=== PATIENT | male | born 1950 | race Caucasian/White ===

== ENCOUNTER 2021-01-12 00:34 | Inpatient (IN) | payer MEDICARE, BC ==
[~2021-01-12] VITALS: Ht 182.9 cm; Wt 95.3 kg
[2021-01-12] VITALS (25 sets, daily range): BP systolic 120–169; BP diastolic 64–119
--- NOTE | 2021-01-12 00:35 | NUR ---
PT AAOX4. [id number] FROM [facility], WITNESSED SYNCOPAL EPISODES, DENIES ANY COMPLAINTS. VSS. AWAKE AND AWARE HE IS IN THE ED.
[2021-01-12] MEDS ORDERED: IV NS 0.9% 500 ML BAG IV ONE (01:00)
[2021-01-12 01:12] LABS: BASOPHILS # (AUTO) 0.1 K/uL (0.0-0.2); BASOPHILS % (AUTO) 0.8 % (0.0-2.0); EOSINOPHILS % (AUTO) 0.3 % (0.0-6.0); HEMATOCRIT 45 % (39-51); HEMOGLOBIN 14.9 g/dL (13.5-17.5); LYMPHOCYTES # (AUTO) 1.1 K/uL (0.8-4.8); MEAN CORPUSCULAR HGB CONC 33 g/dl (31.0-36.0); MEAN CORPUSCULAR VOLUME 89 fL (80-96); MONOCYTES # (AUTO) 0.7 K/uL (0.1-1.30); MONOCYTES % (AUTO) 9.9 % (2.0-12.0); PLATELET COUNT (AUTO) 194 K/uL (150-450); RED BLOOD CELL COUNT(AUTO) 5.06 MIL/uL (4.5-6.0); WHITE BLOOD COUNT (AUTO) 6.8 K/uL (4.3-11.0)
[2021-01-12 01:26] LABS: ALANINE AMINOTRANSFERASE 32 U/L (12-78); ALBUMIN 3.1 g/dL (3.4-5.0); ALKALINE PHOSPHATASE 78 U/L (46-116); BILIRUBIN,DIRECT 0.1 mg/dL (0.0-0.2); BILIRUBIN,TOTAL 0.4 mg/dL (0.2-1.0); CALCIUM, SERUM 8.3 mg/dL (8.5-10.1); CARBON DIOXIDE 24 mmol/L (21-32); CHLORIDE 105 mmol/L (98-107); GLUCOSE 104 mg/dL (74-106); SODIUM SERUM 141 mmol/L (136-145); TOTAL PROTEIN, SERUM 6.6 g/dL (6.4-8.2); UREA NITROGEN, BLOOD 17 mg/dL (7-18)
--- NOTE | 2021-01-12 01:29 | NUR ---
PATIENT TAKEN TO RADIOLOGY FOR XRAY Addendum: 01/12/21 at 0139 by KAYLEEN PATIENT TAKEN TO RADIOLOGY FOR CT
--- NOTE | 2021-01-12 01:37 | NUR ---
BROUGHT TO CT AND BACK
[2021-01-12 01:46] LABS: ASPARTATE AMINOTRANSFERASE 30 U/L (15-37)
[2021-01-12 01:50] LABS: POTASSIUM 2.8 mmol/L (3.5-5.1)
--- NOTE | 2021-01-12 01:50 | NUR ---
K 2.8
--- NOTE | 2021-01-12 02:47 | NUR ---
PATIENT SOILED SHEETS. pATIENT'S SHEETS CHANGED. PATIENT CHANGED INTO A CLEAN GOWN. PATIENT IS OFFERED BLANKETS, BUT REFUSED.
--- NOTE | 2021-01-12 02:48 | NUR ---
PATIENT CURRENTLY DENIES ANY PAIN.
[2021-01-12] MEDS ORDERED: POTASSIUM CL. PREMIX PERIPHER. 50 ML IV SCH (03:00)
[2021-01-12] MEDS ORDERED: POTASSIUM CHLORIDE 20 MEQ TAB.PRT.SR PO ONE ×3 (03:00→23:30)
[2021-01-12] MEDS ORDERED: POTASSIUM CL. PREMIX PERIPHER. 50 ML ONE (03:15)
--- NOTE | 2021-01-12 04:08 | NUR ---
PATIENT IS AWAKE. BREATHING EVENLY AND UNLABORED ON ROOM AIR. CONNECTED TO THE MONITOR. VSS ARE STABLE. DENIES SHORTNESS OF BREATH. SIDE RAILS ARE UP FOR SAFETY. BED AT THE LOWEST POSITION. CALL LIGHT WITHIN REACH. WILL CONTINUE TO MONITOR THE PATIENT CLOSELY.
--- NOTE | 2021-01-12 04:14 | NUR ---
PATIENT IS PLACED ON 2L N/C. PATIENT PROVIDED WITH WARM BLANKET FOR COMFORT. WILL CONTINUE TO MONITOR THE PATIENT CLOSELY.
[2021-01-12] MEDS ORDERED: ONDANSETRON HCL/PF 4 MG/2 ML VIAL IVP PRN (06:00)
[2021-01-12] MEDS ORDERED: ACETAMINOPHEN 325 MG TABLET PO PRN (06:00)
[2021-01-12] MEDS ORDERED: MAG HYDROX/AL HYDROX/SIMETH 30 ML UDC PO PRN (06:00)
[2021-01-12] MEDS ORDERED: Z GUARD REMEDY 2 OZ OINT TP PRN (06:00)
[2021-01-12] MEDS ORDERED: MORPHINE SULFATE INJ 2 MG/ML DISP.SYRIN IV PRN (06:00)
[2021-01-12] MEDS ORDERED: ZOLPIDEM TARTRATE 5 MG TABLET PO PRN (06:00)
[2021-01-12] MEDS ORDERED: HYDROCODONE/APAP 5/325MG TABLET PO PRN (06:00)
[2021-01-12] MEDS ORDERED: MAGNESIUM HYDROXIDE 30 ML UDC PO PRN (06:00)
[2021-01-12] MEDS ORDERED: METO-357 PO (07:27)
[2021-01-12] MEDS ORDERED: TRAZ-252 PO (07:27)
[2021-01-12] MEDS ORDERED: RIVA10TA PO (07:27)
--- NOTE | 2021-01-12 08:15 | NUR ---
Report given to PHYSICIAN CHIEF OF PATHOLOGY Bryson.
--- NOTE | 2021-01-12 08:45 | NUR ---
ICU ADMITTING NOTES RECEIVED PATIENT FROM ER VIA [facility], PATIENT A/O X4, ABLE TO MAKE NEEDS KNOWN, PATIENT ABLE TO WALK FROM [facility] TO HOSPITAL BED. ON OXYGEN 2LPM VIA NC SATING 98%, IV ACCESS ON LEFT HAND #20 AND RAC#20, INTACT AND PATENT CURRENTLY SL. SR ON THE MONITOR, SAFETY MEASURES INITIATED, BED IN LOWEST LOCKED POSITION WITH SIDE RAILS UP X2, CALL LIGHT WITHIN EASY REACH. WILL CONTINUE TO MONITOR.
--- NOTE | 2021-01-12 08:50 | NUR ---
FOOD CART ATTENDANT NOTES WOUND CARE NURSE ON UNIT FOR EVALUATION, NOTED WITH ABRASION ON LEFT SHOULDER, KEPT CLEAN AND DRY, PICTURES TAKEN AND FILED ON CHART.
[2021-01-12] MEDS: THIAMINE HCL 100 MG TABLET PO SCH (09:10)
[2021-01-12] MEDS: PANTOPRAZOLE 40 MG TABLET.DR PO SCH (09:10)
[2021-01-12] MEDS: FOLIC ACID 1 MG TABLET PO SCH (09:10)
[2021-01-12] MEDS: METOPROLOL SUCCINATE 50 MG TAB.SR.24H PO SCH (10:27)
[2021-01-12] MEDS ORDERED: WATER FOR INJECTION STERILE IV ONE (14:00)
[2021-01-12] MEDS ORDERED: PROTHROMBIN COMPLEX CONCENTR IV ONE (14:00)
--- NOTE | 2021-01-12 17:00 | NUR ---
LINEMAN NOTES SEEN AND EXAMINED BY DR. MCDUFFIE WITH NNO AT THIS TIME.
--- NOTE | 2021-01-12 18:39 | NUR ---
GENERAL CLAIMS AGENT NOTES PATIENT IN BED RESTING COMFORTABLY IN MODERATE HIGH BACK REST, A/O X4, ON RA, TOLERATING WELL SATING 96%, IV ACCESS ON LEFT HAND #20 AND RAC #20, SL. SAFETY MEASURES MAINTAINED, WILL ENDORSE TO SKEIN BANDER NURSE FOR JENNIFER.
--- NOTE | 2021-01-12 19:30 | NUR ---
RN NOTE RECEIVED PATIENT IN BED. A/OX4. TOLERATING ROOM AIR. RESPIRATIONS ARE EVEN AND UNLABORED. NO S/S SOB NOTED. NO C/O PAIN AT THIS TIME. EXTERNAL TELE MONITOR READS SINUS RHYTHM WITH OCCASIONAL PVC'S AND BBB HR 69. IN NO APPARENT DISTRESS. IV ACCES IN LEFT HAND #20 AND RAC#20 PATENT AND SALINE LOCKED. BED IS LOW AND LOCKED, HOB ELEVATED IN SEMI FOWLERS, SIDE RAILS UP X2, CALL LIGHT WITHIN REACH. WILL CONTINUE TO MONITOR THROUGHOUT SHIFT.
[2021-01-12 22:09] LABS: CREATININE 0.9 mg/dL (0.6-1.3); MAGNESIUM 1.9 mg/dL (1.8-2.4); POTASSIUM 3.1 mmol/L (3.5-5.1)
[2021-01-13] VITALS (27 sets, daily range): BP systolic 112–161; BP diastolic 73–118
[2021-01-13 04:22] LABS: BASOPHILS % (AUTO) 0.9 % (0.0-2.0); EOSINOPHILS % (AUTO) 0.8 % (0.0-6.0); HEMATOCRIT 43 % (39-51); HEMOGLOBIN 14.1 g/dL (13.5-17.5); LYMPHOCYTES # (AUTO) 1.1 K/uL (0.8-4.8); LYMPHOCYTES % (AUTO) 21.8 % (20.0-44.0); MEAN CORPUSCULAR HGB CONC 33 g/dl (31.0-36.0); MEAN CORPUSCULAR VOLUME 90 fL (80-96); MONOCYTES # (AUTO) 0.5 K/uL (0.1-1.30); MONOCYTES % (AUTO) 9.9 % (2.0-12.0); NEUTROPHILS # (AUTO) 3.5 K/uL (1.8-8.9); NEUTROPHILS % (AUTO) 66.6 % (43.0-81.0); PLATELET COUNT (AUTO) 185 K/uL (150-450); RED BLOOD CELL COUNT(AUTO) 4.77 MIL/uL (4.5-6.0); WHITE BLOOD COUNT (AUTO) 5.2 K/uL (4.3-11.0)
[2021-01-13 04:38] LABS: CALCIUM, SERUM 8.1 mg/dL (8.5-10.1); CREATININE 0.8 mg/dL (0.6-1.3); PHOSPHORUS 2.5 mg/dL (2.5-4.9); POTASSIUM 3.6 mmol/L (3.5-5.1)
[2021-01-13 05:09] LABS: THYROID STIMULATING HORMONE 2.449 uIU/mL (0.358-3.74)
--- NOTE | 2021-01-13 07:19 | NUR ---
RN NOTE PATIENT RESTING IN BED. A/OX4. REMAINS TOLERATING ROOM AIR. NO RESP DISTRESS. NO C/O PAIN THROUGHOUT SHIFT. TELE MONITOR READS SINUS RHYTHM WITH OCCASIONAL PVC'S. NO DISTRESS. IV ACCES MAINTAINED IN LEFT HAND #20 AND RAC#20. BED REMAINS LOW AND LOCKED, HOB ELEVATED IN SEMI FOWLERS, SIDE RAILS UP X2, CALL LIGHT WITHIN REACH. WILL ENDORSE TO ONCOMING SHIFT.
--- NOTE | 2021-01-13 07:40 | NUR ---
ICU/RN PT IS RESTING IN THE BED .ON ROOM AIR,SAT O2-96%.V/S STABLE,AFEBRILE.NO PIN REPORTED AT THIS TIME.PT IS AWAKE,ALERT ,ORIENTED-4.ALL EXTREMITIES WNL.USE URINAL ,IV-HL. LABS REVIEW.CONTINUE MONITORING.
[2021-01-13] MEDS: METOPROLOL SUCCINATE 50 MG TAB.SR.24H PO SCH (08:03)
[2021-01-13] MEDS: FOLIC ACID 1 MG TABLET PO SCH (08:03)
[2021-01-13] MEDS: THIAMINE HCL 100 MG TABLET PO SCH (08:04)
[2021-01-13] MEDS: PANTOPRAZOLE 40 MG TABLET.DR PO SCH (08:04)
--- NOTE | 2021-01-13 09:00 | NUR ---
ICU/RN DUE MEDS ARE GIVEN ORDERED.PT EATS 100% FROM HIS MEAL TRAY. DR FUNEZ SEEN THE PT .CONTINUE MONITORING.
--- NOTE | 2021-01-13 18:32 | NUR ---
ICU/RN PM CARE PROVIDED.V/S TABLE,AFEBRILE.NO PAIN REPORTED AT THIS TIME.PT IS STABLE TO TRANSFER TO TELE UNIT.VENOUS DUPLEX OF LOWER EXTREMITIES DONE.NEGATIVE RESULT.CONSENT FOR CT PULMONARY ANGIOGRAM WITH CONTRAST SIGN.AND SCHEDULE FOR TOMORROW WITH CTA OF THE BRAIN . CONTINUE TO MONITOR.
--- NOTE | 2021-01-13 19:30 | NUR ---
RN NOTE RECEIVED PATIENT IN BED. A/OX4. TOLERATING ROOM AIR. RESPIRATIONS EVEN AND UNLABORED. NO S/S SOB NOTED. NO C/O PAIN, NAUSEA OR VOMITING NOR HEADACHE. EXTERNAL TELE MONITOR READS SINUS RHYTHM WITH BIGEMINY PVC AND DEPRESSED T WAVES. IN NO APPARENT DISTRESS. IV ACCESS IN LEFT HAND #20 AND RAC#20 PATENT AND SALINE LOCKED. BED IS LOW AND LOCKED, HOB ELEVATED IN SEMI FOWLERS, SIDE RAILS UP X2, HUSSEIN LIGHT WITHIN REACH. WILL CONTINUE TO MONITOR THROUGHOUT SHIFT.
[2021-01-14] VITALS (10 sets, daily range): BP systolic 120–153; BP diastolic 70–99
[2021-01-14 04:28] LABS: BASOPHILS % (AUTO) 0.7 % (0.0-2.0); EOSINOPHILS % (AUTO) 0.8 % (0.0-6.0); HEMATOCRIT 43 % (39-51); HEMOGLOBIN 14.3 g/dL (13.5-17.5); LYMPHOCYTES # (AUTO) 1.1 K/uL (0.8-4.8); MEAN CORPUSCULAR HGB CONC 33 g/dl (31.0-36.0); MEAN CORPUSCULAR VOLUME 90 fL (80-96); MONOCYTES # (AUTO) 0.6 K/uL (0.1-1.30); MONOCYTES % (AUTO) 9.1 % (2.0-12.0); NEUTROPHILS # (AUTO) 4.3 K/uL (1.8-8.9); NEUTROPHILS % (AUTO) 71.4 % (43.0-81.0); PLATELET COUNT (AUTO) 173 K/uL (150-450); RED BLOOD CELL COUNT(AUTO) 4.85 MIL/uL (4.5-6.0); WHITE BLOOD COUNT (AUTO) 6.1 K/uL (4.3-11.0)
[2021-01-14 04:37] LABS: CREATININE 0.9 mg/dL (0.6-1.3); POTASSIUM 3.2 mmol/L (3.5-5.1)
--- NOTE | 2021-01-14 06:30 | NUR ---
RN NOTE TRANSFERRED PATIENT FROM ROOM 263 ICU TO 306 TELE. REPORT WAS GIVEN TO JERSEY LAZAR. PATIENT IS STABLE CONDITION. A/OX4. TOLERATING ROOM AIR. NO RESP DISTRESS. NO PAIN. TELE MONITOR READS SINUS RHYTHM WITH PVCS. NO DISTRESS. IV ACCESS IN LEFT HAND #20 AND RAC#20. CHART, BELONGINGS AND MEDICATION FROM CASSETTE SENT WITH PATIENT AT THIS TIME. BED IS LOW AND LOCKED, HOB FLAT, SIDE RAILS UP X4. JERSEY LAZAR AT BEDSIDE FOR CONTINUATION OF CARE.
--- NOTE | 2021-01-14 06:43 | NUR ---
MS RN NOTE At 0630 received patient from ICU, admitted to Telemetry 3WEST room 306-1. Patient is A&Ox4. VS: BP 151/99, HR 61, Temp 97.5, O2 96%, RR 20. Denies pain or discomfort. States he feels fine but is just waking up. IV to L hand and RAC intact and patent flushed with NS. Reminded patient about procedures today. No signs of distress, pupils equal and reactive to light, lung sounds are clear, abdomen soft and non-distended, no edema noted. Abrasion to L shoulder free from s/s of infection. Will continue to monitor.
--- NOTE | 2021-01-14 07:30 | NUR ---
PT RECEIVED RESTING COMFORTABLY IN BED. NO S/S OR C/O PAIN OR DISTRESS NOTED. SIDE RAILS UP X2, CALL LIGHT LEFT WITHIN REACH. WILL CONTINUE PLAN OF CARE.
[2021-01-14] MEDS ORDERED: POTASSIUM CHLORIDE 20 MEQ TAB.PRT.SR PO ONE ×3 (08:00→11:00)
[2021-01-14] MEDS: PANTOPRAZOLE 40 MG TABLET.DR PO SCH (08:32)
[2021-01-14] MEDS: FOLIC ACID 1 MG TABLET PO SCH (08:32)
[2021-01-14] MEDS: THIAMINE HCL 100 MG TABLET PO SCH (08:32)
[2021-01-14] MEDS: METOPROLOL SUCCINATE 50 MG TAB.SR.24H PO SCH (08:36)
[2021-01-14] MEDS ORDERED: IOHEXOL 50 ML IV ONE (12:22)
[2021-01-14] MEDS ORDERED: CT SWABBABLE VALVE TRANS SET 1 EA INFUS.SET MC ONE (12:22)
[2021-01-14] MEDS ORDERED: IV NS 0.9% 250 ML IV ONE (12:22)
[2021-01-14] MEDS ORDERED: IOHEXOL-350 100 ML VIAL IV ONE ×2 (12:22→13:02)
--- NOTE | 2021-01-14 19:03 | NUR ---
CHANGE OF SHIFT REPORT PT RESTING COMFORTABLY IN BED. NO S/S OR C/O PAIN OR DISTRESS NOTED. SIDE RAIL UP X2, CALL LIGHT LEFT WITHIN REACH. PT KEPT CLEAN, DRY, AND COMFORTABLE. NO SIGNIFICANT CHANGES SINCE PREVIOUS SHIFT. WILL GIVE REPORT TO KARLA LAZAR.
--- NOTE | 2021-01-14 19:27 | NUR ---
DISCHARGE INSTRUCTIONS GIVEN ORDERED. ENCOURAGED TO FOLLOW UP WITH PMD INSTRUCTED. ALL QUESTIONS AND CONCERNS ADDRESSED. PATIENT VERBALIZED UNDERSTANDING. MEDICATION RECONCILIATION FORM COMPLETED AND COPY GIVEN TO PATIENT. IV REMOVED WITH CATHETER INTACT, PRESSURE DRESSING APPLIED. TELEMETRY UNIT RETURNED TO STATION. PATIENT TAKEN TO VEHICLE WITH ALL PERSONAL BELONGINGS ACCOMPANIED BY STAFF. NO DISTRESS NOTED AT TIME OF DEPARTURE.
== END 2021-01-14 19:00 | disposition home or self-care (01) | DRG 83 ==
LOC: ER 00:36 → ICU 08:11 → TELE 01-14 06:37
PROVIDERS: ADMIT Nurse Practitioner Family; ATTEND Internal Medicine
DX: S06.6X9A Traumatic subarachnoid hemorrhage with loss of consciousness of unspecified duration, initial encounter (principal); E44.1 Mild protein-calorie malnutrition; Y92.89 Other specified places as the place of occurrence of the external cause; Z79.01 Long term (current) use of anticoagulants; W10.9XXA Fall (on) (from) unspecified stairs and steps, initial encounter; Z20.822 Contact with and (suspected) exposure to COVID-19; I48.91 Unspecified atrial fibrillation; I10 Essential (primary) hypertension; E87.6 Hypokalemia; F10.129 Alcohol abuse with intoxication, unspecified; Y90.7 Blood alcohol level of 200-239 mg/100 ml; Z86.711 Personal history of pulmonary embolism; Z86.718 Personal history of other venous thrombosis and embolism; J32.0 Chronic maxillary sinusitis; Z80.7 Family history of other malignant neoplasms of lymphoid, hematopoietic and related tissues
CPT/HCPCS: 36415; 70450-TC; 70496-TC; 71045-TC; 80048-TC; 80061-TC; 80076-TC; 83735-TC; 84100-TC; 84443-TC; 84484-TC; 85025-TC; 87081-TC; 92526; 92611-TC; 93307-TC; 93970-TC; 97112-TC; 97116-TC; 97530-TC; C9132; C9803; G0378; G0480; J3480; J7040; J7050; Q9967